=== PATIENT | male | born 1995 | race Caucasian/White ===

== ENCOUNTER 2016-10-13 07:06 | Emergency (ER) | payer SELFPAY ==
[~2016-10-13] VITALS: Ht 170.2 cm; Wt 68.0 kg
[2016-10-13] MEDS ORDERED: HYDROMORPHONE 1 MG/1 ML DISP.SYRIN IV ONE ×3 (07:30→08:30)
[2016-10-13] MEDS ORDERED: ONDANSETRON 4 MG/2 ML VIAL IV ONE (07:30)
[2016-10-13] MEDS ORDERED: IV NORMAL SALINE 1000 ML BAG IV ONE (07:30)
[2016-10-13] MEDS ORDERED: PROPOFOL 1,000 MG/100 ML BOTTLE IV ONE (07:30)
[2016-10-13] MEDS ORDERED: HYDROMORPHONE 2 MG/1 ML DISP.SYRIN ONE (07:47)
[2016-10-13] MEDS ORDERED: PROPOFOL 200 MG/20 ML BOTTLE ONE ×2 (07:47→08:14)
[2016-10-13] MEDS ORDERED: ONDANSETRON 4 MG/2 ML VIAL ONE ×2 (07:47→07:59)
[2016-10-13] MEDS ORDERED: HYDROMORPHONE 1 MG/1 ML DISP.SYRIN ONE ×2 (07:59→08:33)
[2016-10-13] MEDS ORDERED: ONDANSETRON IV *ER 4 MG/2 ML VIAL IV ONE (08:00)
--- NOTE | 2016-10-13 08:02 | NUR ---
ER MD, RT, RNS AT [facility] TO START REDUCTION OF THE LEFT SHOULDER UNDER MODERATE SEDATION PROTOCOL. PT SIGNED THE CONSENT ALREADY.
--- NOTE | 2016-10-13 08:48 | NUR ---
PO CHALLENGED THE PT. ABLE TO TOLERATE .
[2016-10-13 08:57] VITALS: BP 113/28
--- NOTE | 2016-10-13 08:58 | NUR ---
Patient discharged to home in stable conditon. Written and verbal after care instructions given. Patient verbalizes understanding of instructions.PT WALKS IN STEADY GAIT, SAYS FEELS READY TO BE D/NILO. PT DENEIS DIZZINESS OR LIGHT HEADEDNESS OR NAUSEA. LEFT SHOUDER PAIN SUBSIDED.
== END 2016-10-13 09:03 | disposition home or self-care (01) ==
LOC: ER 07:06
DX: S43.005A Unspecified dislocation of left shoulder joint, initial encounter (principal); F32.9 Major depressive disorder, single episode, unspecified; F41.9 Anxiety disorder, unspecified; V00.131A Fall from skateboard, initial encounter; Y93.89 Activity, other specified; Y99.8 Other external cause status; Y92.89 Other specified places as the place of occurrence of the external cause
CPT/HCPCS: 73020; 73030; A4663; J1170; J2405; J3490; J7030; J7050